=== PATIENT | female | born 1955 | race Two or more races ===

== ENCOUNTER 2023-05-28 18:48 | Emergency (ER) | payer OTHER ==
[~2023-05-28] VITALS: Ht 172.7 cm; Wt 61.2 kg
[2023-05-28] MEDS ORDERED: WELLBUTRIN SR150 MG (19:02)
[2023-05-28] MEDS ORDERED: LIPITOR40 M1 (19:02)
[2023-05-28] MEDS ORDERED: WELLBUTRIN XL300 MG (19:03)
[2023-05-28] MEDS ORDERED: TOPROL XL50 MG (19:03)
== END 2023-05-29 21:49 | disposition left against medical advice (07) ==
LOC: ER 18:48 → SEC-K 05-29 14:24 → ER 05-29 14:24 → MEDI 05-29 14:24 → SEC-K 05-29 14:40 → MEDI 05-29 14:40 → SEC-K 05-29 19:11 → ER 05-29 21:49
PROVIDERS: Emergency Medicine
DX: F32.A Depression, unspecified (principal); R56.9 Unspecified convulsions; F10.20 Alcohol dependence, uncomplicated; F10.239 Alcohol dependence with withdrawal, unspecified; Z20.822 Contact with and (suspected) exposure to COVID-19

== ENCOUNTER 2023-06-06 10:22 | Outpatient (CLI) | payer OTHER ==
[~2023-06-06 10:22] MED LIST: LIPITOR40 M1; TOPROL XL50 MG; WELLBUTRIN SR150 MG; WELLBUTRIN XL300 MG
== END 2023-06-06 10:45 | disposition home or self-care (01) ==
LOC: TOM 10:22
PROVIDERS: ATTEND Internal Medicine Pulmonary Disease
DX: J44.1 Chronic obstructive pulmonary disease with (acute) exacerbation (principal); Z87.891 Personal history of nicotine dependence; R06.02 Shortness of breath